=== PATIENT | female | born 1980 | race Hispanic/Latino ===

== ENCOUNTER 2017-01-01 09:16 | Outpatient (CLI) | payer BC ==
[2017-01-01 11:21] LABS: #Basophils 0.1 thou/uL (0.0-0.2); #Eosinphils 0.2 thou/uL (0.0-0.7); #Lymphocytes 3.2 thou/uL (1.20-3.40); #Monocytes 0.9 thou/uL (0.11-0.59); #Neutrophils 7.2 thou/uL (1.40-6.50); %Basophils 0.5 % (0.0-1.0); %Eosinophils 1.6 % (0.0-10.0); %Lymphocytes 27.5 % (21.0-51.0); %Monocytes 7.9 % (0.0-10.0); %Neutrophils 62.5 % (42.0-75.0); Hemoglobin 14.4 g/dL (12.0-16.0); Mean Corpuscular HGB CONC 33.4 g/dL (32.0-36.0); Mean Corpuscular Hemoglobin 31.3 pg (27.0-31.0); Mean Corpuscular Volume 93.5 fl (81.0-99.0); Mean Platelet Volume 8.3 fL (7.4-10.4); Platelet Count 190 thou/uL (130-400); RBC Distribution Width 12.4 % (11.5-14.5); Red Blood Cell (RBC) Count 4.61 mill/uL (4.20-5.40); White Blood Cell (WBC) Count 11.6 thou/uL (4.8-10.8)
== END 2017-01-01 09:17 ==
LOC: HPCALD 09:16
PROVIDERS: ATTEND Physician Assistant
DX: R61 Generalized hyperhidrosis (principal)
CPT/HCPCS: 36415; 84443; 85025

== ENCOUNTER 2017-01-01 09:24 | Outpatient (CLI) | payer BC ==
--- NOTE | 2017-01-01 16:59 | RAD ---
RIGHT FOOT THREE VIEWS 01/01/17 No fracture or periosteal reaction was seen. A small calcaneal spur was present. There was a little bony spurring in the talonavicular joint. IMPRESSION: Minor bony spurring but no acute findings. POS: HOME
== END 2017-01-01 09:25 | disposition home or self-care (01) ==
LOC: BURRAD 09:24
PROVIDERS: ATTEND Physician Assistant
DX: M79.671 Pain in right foot (principal)

== ENCOUNTER 2017-01-16 23:10 | Emergency (ER) | payer BC ==
[2017-01-16] MEDS ORDERED: Ondansetron HCl/PF 4 MG/2 ML Vial ONE (23:31)
[2017-01-16] MEDS ORDERED: Ketorolac Tromethamine 30 MG/ML VIAL ONE (23:31)
[2017-01-16 23:43] LABS: Bilirubin Negative (Negative); Blood, Urine Moderate (Negative); Glucose, Urine (Dipstick) Negative (Negative); Leukocyte Negative (Negative); Nitrite Negative (Negative); Protein, Urine (Dipstick) Negative (Neg-Trace); Urobilinogen 0.2 mg/dL (0.2-1.0); pH, Urine 5.5 (5.0-9.0)
[2017-01-16 23:45] LABS: #Basophils 0.1 thou/uL (0.0-0.2); #Lymphocytes 1.4 thou/uL (1.20-3.40); #Monocytes 0.9 thou/uL (0.11-0.59); #Neutrophils 13.8 thou/uL (1.40-6.50); %Basophils 0.8 % (0.0-1.0); %Eosinophils 0.3 % (0.0-10.0); %Lymphocytes 8.6 % (21.0-51.0); %Monocytes 5.6 % (0.0-10.0); %Neutrophils 84.8 % (42.0-75.0); Clarity Clear (Clear); Hemoglobin 15.6 g/dL (12.0-16.0); Mean Corpuscular HGB CONC 33.8 g/dL (32.0-36.0); Mean Corpuscular Hemoglobin 31.5 pg (27.0-31.0); Mean Corpuscular Volume 93.2 fl (81.0-99.0); Mean Platelet Volume 8.5 fL (7.4-10.4); Platelet Count 206 thou/uL (130-400); RBC Distribution Width 12.5 % (11.5-14.5); Red Blood Cell (RBC) Count 4.95 mill/uL (4.20-5.40); Specific Gravity, Urine 1.028 (1.002-1.036); White Blood Cell (WBC) Count 16.2 thou/uL (4.8-10.8)
[2017-01-16 23:49] LABS: BHCG - Serum Negative (NEGATIVE); Pregs Control Background? CLEAR/WHITE (CLR/WHITE); Pregs Control Bar Appear? YES (CONTROL BAR)
[2017-01-16 23:58] LABS: ALT (SGPT) 29 U/L (8-55); AST (SGOT) 22 U/L (5-34); Albumin 3.9 g/dL (3.5-5.0); Alkaline Phosphatase 127 U/L (40-150); Anion Gap 14 mmol/L (10-20); BUN (Urea Nitrogen) 11 mg/dL (7.0-18.7); Bilirubin, Total 0.5 mg/dL (0.2-1.2); Calc. Creatinine Clearance 0 mL/min (70-130); Calcium 8.2 mg/dL (7.8-10.44); Carbon Dioxide 18 mmol/L (22-29); Chloride 109 mmol/L (98-107); Estimated GFR-MDRD Greater than 90; Globulin 3.3 g/dL (2.4-3.5); Glucose 129 mg/dL (70-105); Lipase 12 U/L (8-78); Potassium 3.7 mmol/L (3.5-5.1); Protein, Total 7.2 g/dL (6.0-8.3); Sodium 137 mmol/L (136-145)
[2017-01-17 00:03] LABS: Bacteria/HPF Rare-Few HPF (None Seen); Squamous Epithelial 0-3 HPF (0-3); WBC/HPF 0-3 HPF (0-3)
--- NOTE | 2017-01-17 12:03 | RAD ---
LEFT ANKLE THREE VIEWS HISTORY: Left ankle injury. FINDINGS: The ankle mortise is intact. No acute fracture or dislocation is apparent. IMPRESSION: No acute osseous abnormalities are demonstrated. POS: [facility]
== END 2017-01-17 00:56 | disposition home or self-care (01) ==
LOC: BURERS 23:10
DX: S93.402A Sprain of unspecified ligament of left ankle, initial encounter (principal); K52.9 Noninfective gastroenteritis and colitis, unspecified; F32.9 Major depressive disorder, single episode, unspecified; X58.XXXA Exposure to other specified factors, initial encounter
CPT/HCPCS: 80053; 81003; 81015; 83690; 84703; 85025; 96361; 96374; 96375; J1885; J2405

== ENCOUNTER 2021-10-21 11:38 | Outpatient (CLI) | payer BC | END 2021-10-21 11:39 | disposition home or self-care (01) | LOC: BURRAD 11:38 | PROVIDERS: ATTEND Physician Assistant | DX: M79.672 Pain in left foot (principal); M77.32 Calcaneal spur, left foot ==

== ENCOUNTER 2022-08-30 15:34 | Emergency (ER) | payer BC ==
[~2022-08-30 15:34] MED LIST: Iopamidol 370 76% 100 ML VIAL ONE
[2022-08-30 16:01] LABS: #Basophils 0.1 thou/uL (0.0-0.2); #Eosinphils 0.1 thou/uL (0.0-0.7); #Monocytes 0.5 thou/uL (0.11-0.59); #Neutrophils 5.1 thou/uL (1.40-6.50); %Eosinophils 1.1 % (0.0-10.0); %Lymphocytes 34.2 % (21.0-51.0); %Monocytes 5.6 % (0.0-10.0); %Neutrophils 58.2 % (42.0-75.0); Hemoglobin 14.2 g/dL (12.0-16.0); Mean Corpuscular HGB CONC 32.6 g/dL (32.0-36.0); Mean Corpuscular Volume 95.1 fl (78.0-98.0); Mean Platelet Volume 8.8 fL (7.4-10.4); Platelet Count 221 10x3/uL (130-400); RBC Distribution Width 12.7 % (11.5-14.5); Red Blood Cell (RBC) Count 4.57 mill/uL (4.20-5.40); White Blood Cell (WBC) Count 8.7 10x3/uL (4.8-10.8)
[2022-08-30 16:16] LABS: ALT (SGPT) 31 U/L (8-55); AST (SGOT) 22 U/L (5-34); Alkaline Phosphatase 118 U/L (40-110); Anion Gap 13 mmol/L (10-20); BUN (Urea Nitrogen) 9 mg/dL (7.0-18.7); Bilirubin, Total 0.5 mg/dL (0.2-1.2); Calc. Creatinine Clearance 0 mL/min (70-130); Calcium 8.4 mg/dL (7.8-10.44); Carbon Dioxide 22 mmol/L (22-29); Chloride 107 mmol/L (98-107); Estimated GFR 116; Globulin 2.9 g/dL (2.4-3.5); Glucose 118 mg/dL (70-105); Lipase 17 U/L (8-78); Potassium 3.6 mmol/L (3.5-5.1); Protein, Total 6.9 g/dL (6.0-8.3); Sodium 138 mmol/L (136-145)
== END 2022-08-30 18:03 | disposition home or self-care (01) ==
LOC: BURERS 15:34
DX: R07.89 Other chest pain (principal); I10 Essential (primary) hypertension; Z79.899 Other long term (current) drug therapy
CPT/HCPCS: 71045; 71275; 80053; 83690; 84484; 85025; 85379; 93005; Q9967

== ENCOUNTER 2022-09-30 14:00 | Outpatient (CLI) | payer BC | END 2022-09-30 14:01 | disposition home or self-care (01) | LOC: BURRAD 14:00 | PROVIDERS: ATTEND Physician Assistant | DX: M25.511 Pain in right shoulder (principal) ==

== ENCOUNTER 2023-06-08 13:29 | Outpatient (CLI) | payer BC | END 2023-06-08 13:30 | disposition home or self-care (01) | LOC: BURRAD 13:29 | PROVIDERS: ATTEND Nurse Practitioner Family | DX: M54.6 Pain in thoracic spine (principal); M47.814 Spondylosis without myelopathy or radiculopathy, thoracic region | CPT/HCPCS: 72072; 72100 ==